=== PATIENT | female | born 1970 | race Caucasian/White ===

== ENCOUNTER 2020-05-19 19:00 | Emergency (ER) | payer OTHER ==
[~2020-05-19] VITALS: Ht 163.8 cm; Wt 82.7 kg
[2020-05-19] MEDS ORDERED: KETOROLAC 15 MG/ML VIAL. IVP ONE (19:45)
[2020-05-19] MEDS ORDERED: ORPHENADRINE CITRATE 60 MG/2 ML VIAL. IV ONE (19:45)
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
[2020-05-19] MEDS ORDERED: ORPH100T PO (20:33)
[2020-05-19 20:51] VITALS: BP 114/76
== END 2020-05-19 20:44 | disposition home or self-care (01) ==
LOC: ER 19:00
DX: S76.012A Strain of muscle, fascia and tendon of left hip, initial encounter (principal); S20.219A Contusion of unspecified front wall of thorax, initial encounter; R07.2 Precordial pain; K21.9 Gastro-esophageal reflux disease without esophagitis; E03.9 Hypothyroidism, unspecified; G43.909 Migraine, unspecified, not intractable, without status migrainosus; V49.59XA Passenger injured in collision with other motor vehicles in traffic accident, initial encounter; Y92.488 Other paved roadways as the place of occurrence of the external cause; Y93.89 Activity, other specified; Y99.8 Other external cause status
CPT/HCPCS: 71045; 73502; 96374; 96375; 99285; J1885; J2360

== ENCOUNTER → 2020-06-11 | Outpatient (CLI) | payer OTHER ==
[2020-05-19 20:51] VITALS: BP 114/76
[~2020-06-11] MED LIST: ORPH100T PO
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
== END ==
LOC: KCIC MRI 08:14
PROVIDERS: ATTEND Family Medicine
DX: S32.492A Other specified fracture of left acetabulum, initial encounter for closed fracture (principal); X58.XXXA Exposure to other specified factors, initial encounter; Y93.89 Activity, other specified; Y92.89 Other specified places as the place of occurrence of the external cause; Y99.8 Other external cause status
CPT/HCPCS: 73721